=== PATIENT | female | born 2000 | race Caucasian/White ===

== ENCOUNTER 2023-08-03 13:20 | Emergency (ER) | payer OTHER ==
--- NOTE | 2023-08-03 13:25 | ED ---
General Adult HPI - General Source: RN notes reviewed <Karla Stuart - Last Filed: 08/03/23 13:24> <Jerel Rosas - Last Filed: 08/03/23 18:25> - General Stated complaint: Fall Time Seen by Provider: 08/03/23 13:24 - History of Present Illness Initial comments: 22-year-old female presents to the emergency department the chief complaint of syncope. Patient reports that she is approximately 34 weeks . (Karla Stuart) This is a 22-year-old female who is 32 weeks . 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 Patient states that she thinks she passed out for just 1 second. Patient states she has a little bit of headache at this time. Patient also states she feels very fatigued patient no longer feels lightheaded. Patient denies any other injury. (Jerel Rosas) - Related Data Previous Rx's Medication Instructions Recorded Nitrofurantoin Monohyd/M-Cryst 100 mg PO Q12HR #14 cap 08/03/23 [Macrobid] Allergies Allergy/AdvReac Type Severity Reaction Status Date / Time No Known Allergies Allergy Verified 08/03/23 14:02 Review of Systems ROS Other: All systems not noted in ROS Statement are negative. <Karla Stuart - Last Filed: 08/03/23 13:24> ROS Other: All systems not noted in ROS Statement are negative. <Jerel Rosas - Last Filed: 08/03/23 18:25> ROS Statement: Those systems with pertinent positive or pertinent negative responses have been documented in the HPI. Past Medical History Past Medical History: No Reported History History of Any Multi-Drug Resistant Organisms: None Reported Past Surgical History: No Surgical Hx Reported Past Psychological History: No Psychological Hx Reported Past Alcohol Use History: None Reported Past Drug Use History: None Reported <Karla Stuart - Last Filed: 08/03/23 13:24> General Exam <Karla Stuart - Last Filed: 08/03/23 13:24> <Jerel Rosas - Last Filed: 08/03/23 18:25> - General Exam Comments Initial Comments: Visual Physical Exam Vital signs reviewed General: Well-appearing, nontoxic, no acute distress. Head: Normocephalic, atraumatic Eyes: PERRLA, EOMI ENT: Airway patent Chest: Nonlabored breathing Skin: No visual rash, normal skin tone Neuro: Alert and oriented 3 Musculoskeletal: No gross abnormalities (Karla Stuart) GENERAL: Patient is well-developed and well-nourished. Patient is nontoxic and well- hydrated and is in no acute distress. ENT: Neck is soft and supple. No significant lymphadenopathy is noted. Oropharynx is clear. Moist mucous membranes. Neck has full range of motion without huy citing any pain. She has a small hematoma to the occipital region of the head EYES: The sclera were anicteric and conjunctiva were pink and moist. Extraocular movements were intact and pupils were equal round and reactive to light. Eyelids were unremarkable. PULMONARY: Unlabored respirations. Good breath sounds bilaterally. No audible rales rhonchi or wheezing was noted. CARDIOVASCULAR: There is a regular rate and rhythm without any murmurs gallops or rubs. ABDOMEN: Soft and nontender with normal bowel sounds. SKIN: Skin is clear with no lesions or rashes and otherwise unremarkable. NEUROLOGIC: Patient is alert and oriented x3. Cranial nerves II through XII are grossly intact. Motor and sensory are also intact. Normal speech, volume and content. Symmetrical smile. MUSCULOSKELETAL: Normal extremities with adequate strength and full range of motion. LYMPHATICS: No significant lymphadenopathy is noted PSYCHIATRIC: Normal psychiatric evaluation. (Jerel Rosas) Course Vital Signs 08/03/23 08/03/23 13:58 18:15 Temperature 98.3 F 98.0 F Pulse Rate 112 H 90 Respiratory 18 Rate Blood Pressure 119/86 114/73 O2 Sat by Pulse 98 97 Oximetry Medical Decision Making <Karla Stuart - Last Filed: 08/03/23 13:24> - Lab Data Result diagrams: 08/03/23 14:16 08/03/23 14:16 <Jerel Rosas - Last Filed: 08/03/23 18:25> - Medical Decision Making I performed the quick note portion of this exam, verbal signature Karla Stuart PA-C (Karla Stuart) EKG is interpreted by myself. EKG shows a sinus rhythm at 91 bpm AK interval is 140 QRS 78 QT interval 332 QTC is 381. Patient's EKG shows no ST segment elevation or depression. I offered a computed tomography scan of the patient's head and she did not want one. Patient was much more concerned about having the baby checked out. Patient denies having landed on the baby or her belly. Patient denies any significant abdominal pain. Patient states she has a couple sharp pains on the side which she was. She prior to the falls well. And has had that for a few weeks. Patient denies any vaginal bleeding. Patient denies any back pain. Patient points to the left lateral side of the abdomen and states this is where the sharp pain that she has had occurs. She states only last 1-2 seconds.. Was pt. sent in by a medical professional or institution (, [facility], SALES BRANCH MANAGER, urgent care, hospital, or shelter...) When possible be specific @ -[No] Did you speak to anyone other than the patient for history (EMS, parent, family, police, friend...)? What history was obtained from this source @ -[No] Did you review nursing and triage notes (agree or disagree)? Why? @ -[I reviewed and agree with nursing and triage notes] Were old charts reviewed (outside hosp., previous admission, EMS record, old EKG, old radiological studies, urgent care reports/EKG's, shelter records)? Report findings @ -[No old charts were reviewed] Differential Diagnosis (chest pain, altered mental status, abdominal pain women, abdominal pain men, vaginal bleeding, weakness, fever, dyspnea, syncope, headache, dizziness, GI bleed, back pain, seizure, CVA, palpatations, mental health, musculoskeletal)? @ -Differential Syncope: Valvular disease, hypertrophic cardiomyopathy, pulmonary embolism, tamponade, tachycardia, bradycardia, ND, hypovolemia, hemorrhage, dissection, anemia, intracranial hemorrhage, seizure, hypoglycemia, carbon monoxide poisoning, this is not meant to be an all-inclusive list. EKG interpreted by me (3pts min.). @ -[As above] X-rays interpreted by me (1pt min.). @ -[None done] CT interpreted by me (1pt min.). @ -[None done] U/S interpreted by me (1pt. min.). @ -[None done] What testing was considered but not performed or refused? (CT, X-rays, U/S, labs)? Why? @ -I considered ordering a computed tomography scan of the patient's pain but the patient refused and she just wanted to have her baby checked out. What meds were considered but not given or refused? Why? @ -[None] Did you discuss the management of the patient with other professionals (professionals i.e. , PA, SALES BRANCH MANAGER, lab, RT, psych nurse, foster care social worker, research subject, teacher, fire officer, case management specialist)? Give summary @ -[No] Was smoking cessation discussed for >3mins.? @ -[No] Was critical care preformed (if so, how long)? @ -[No] Were there social determinants of health that impacted care today? How? (Homelessness, low income, unemployed, alcoholism, drug addiction, transportation, low edu. Level, literacy, decrease access to med. care, retirement, rehab)? @ -[No] Was there de-escalation of care discussed even if they declined (Discuss DNR or withdrawal of care, Hospice)? DNR status @ -[No] What co-morbidities impacted this encounter? (DM, HTN, Smoking, COPD, CAD, Cancer, CVA, ARF, Chemo, Hep., AIDS, mental health diagnosis, sleep apnea, morbid obesity)? @ -[None] Was patient admitted / discharged? Hospital course, mention meds given and route, prescriptions, significant lab abnormalities, going to OR and other pertinent info. @ -Patient had no significant abdominal pain on palpation. Patient did have a small hematoma to the occipital region of her scalp. Patient did not want a CAT scan. Patient wanted to go upstairs and be checked out by AUTOMOBILE TIRE BUILDER. Patient did have some bacteria in her urine so I will be treating she states she's had this multiple times before but for various reasons she did not have it treated before. Undiagnosed new problem with uncertain prognosis? @ -[No] Drug Therapy requiring intensive monitoring for toxicity (Heparin, Nitro, Insulin, Cardizem)? @ -[No] Were any procedures done? @ -[No] Diagnosis/symptom? @ -Syncope Acute, or Chronic, or Acute on Chronic? @ -Acute Uncomplicated (without systemic symptoms) or Complicated (systemic symptoms)? @ -Complicated Side effects of treatment? @ -[No] Exacerbation, Progression, or Severe Exacerbation? @ -[No] Poses a threat to life or bodily function? How? (Chest pain, USA, ND, pneumonia, PE, COPD, DKA, ARF, appy, cholecystitis, CVA, Diverticulitis, Homicidal, Suic idal, threat to staff... and all critical care pts) @ -[No] Diagnosis/symptom? @ -Urinary tract infection Acute, or Chronic, or Acute on Chronic? @ -Acute Uncomplicated (without systemic symptoms) or Complicated (systemic symptoms)? @ -Complicated Side effects of treatment? @ -[none] Exacerbation, Progression, or Severe Exacerbation] @ -[no] Poses a threat to life or bodily function? @ -[no] (Jerel Rosas) - Lab Data Lab Results 08/03/23 08/03/23 08/03/23 Range/Units 14:04 14:16 14:16 WBC 8.3 (3.8-10.6) k/uL RBC 4.23 (3.80-5.40) m/uL Hgb 12.4 (11.4-16.0) gm/dL Hct 36.1 (34.0-46.0) % MCV 85.2 (80.0-100.0) fL MCH 29.3 (25.0-35.0) pg MCHC 34.4 (31.0-37.0) g/dL RDW 12.3 (11.5-15.5) % Plt Count 124 L (150-450) k/uL MPV 9.8 Neutrophils % 82 % Lymphocytes % 12 % Monocytes % 4 % Eosinophils % 0 % Basophils % 0 % Neutrophils # 6.8 (1.3-7.7) k/uL Lymphocytes # 1.0 (1.0-4.8) k/uL Monocytes # 0.4 (0-1.0) k/uL Eosinophils # 0.0 (0-0.7) k/uL Basophils # 0.0 (0-0.2) k/uL PT 9.8 L (10.0-12.5) sec INR 0.9 (<1.2) APTT 23.1 (22.0-30.0) sec Sodium (137-145) mmol/L Potassium (3.5-5.1) mmol/L Chloride (98-107) mmol/L Carbon Dioxide (22-30) mmol/L Anion Gap mmol/L BUN (7-17) mg/dL Creatinine (0.52-1.04) mg/dL Est GFR (CKD-EPI)AfAm (>60 ml/min/1.73 sqM) Est GFR (CKD-EPI)NonAf (>60 ml/min/1.73 sqM) Glucose (74-99) mg/dL POC Glucose (mg/dL) 113 H (70-110) mg/dL POC Glu News Assignment Editor ID Jamia Araiza Calcium (8.4-10.2) mg/dL Total Bilirubin (0.2-1.3) mg/dL AST (14-36) U/L ALT (4-34) U/L Alkaline Phosphatase (38-126) U/L Total Protein (6.3-8.2) g/dL Albumin (3.5-5.0) g/dL Urine Color Urine Appearance (Clear) Urine pH (5.0-8.0) Ur Specific [place] (1.001-1.035) Urine Protein (Negative) Urine Glucose (UA) (Negative) Urine Ketones (Negative) Urine Blood (Negative) Urine Nitrite (Negative) Urine Bilirubin (Negative) Urine Urobilinogen (<2.0) mg/dL Ur Leukocyte Esterase (Negative) Urine RBC (0-5) /hpf Urine WBC (0-5) /hpf Ur Squamous Epith Cells (0-4) /hpf Urine Bacteria (None) /hpf Urine Mucus (None) /hpf Influenza Type A (PCR) (Not Detectd) Influenza Type B (PCR) (Not Detectd) RSV (PCR) (Not Detectd) SARS-CoV-2 (PCR) (Not Detectd) 08/03/23 08/03/23 08/03/23 Range/Units 14:16 14:16 14:24 WBC (3.8-10.6) k/uL RBC (3.80-5.40) m/uL Hgb (11.4-16.0) gm/dL Hct (34.0-46.0) % MCV (80.0-100.0) fL MCH (25.0-35.0) pg MCHC (31.0-37.0) g/dL RDW (11.5-15.5) % Plt Count (150-450) k/uL MPV Neutrophils % % Lymphocytes % % Monocytes % % Eosinophils % % Basophils % % Neutrophils # (1.3-7.7) k/uL Lymphocytes # (1.0-4.8) k/uL Monocytes # (0-1.0) k/uL Eosinophils # (0-0.7) k/uL Basophils # (0-0.2) k/uL PT (10.0-12.5) sec INR (<1.2) APTT (22.0-30.0) sec Sodium 134 L (137-145) mmol/L Potassium 4.0 (3.5-5.1) mmol/L Chloride 104 (98-107) mmol/L Carbon Dioxide 20 L (22-30) mmol/L Anion Gap 10 mmol/L BUN 10 (7-17) mg/dL Creatinine 0.58 (0.52-1.04) mg/dL Est GFR (CKD-EPI)AfAm >90 (>60 ml/min/1.73 sqM) Est GFR (CKD-EPI)NonAf >90 (>60 ml/min/1.73 sqM) Glucose 98 (74-99) mg/dL POC Glucose (mg/dL) (70-110) mg/dL POC Glu News Assignment Editor ID Calcium 9.0 (8.4-10.2) mg/dL Total Bilirubin 0.3 (0.2-1.3) mg/dL AST 27 (14-36) U/L ALT 18 (4-34) U/L Alkaline Phosphatase 125 (38-126) U/L Total Protein 6.9 (6.3-8.2) g/dL Albumin 3.9 (3.5-5.0) g/dL Urine Color Light Yellow Urine Appearance Cloudy H (Clear) Urine pH 6.0 (5.0-8.0) Ur Specific [place] 1.022 (1.001-1.035) Urine Protein Trace H (Negative) Urine Glucose (UA) Negative (Negative) Urine Ketones Negative (Negative) Urine Blood Negative (Negative) Urine Nitrite Negative (Negative) Urine Bilirubin Negative (Negative) Urine Urobilinogen <2.0 (<2.0) mg/dL Ur Leukocyte Esterase Large H (Negative) Urine RBC 1 (0-5) /hpf Urine WBC 5 (0-5) /hpf Ur Squamous Epith Cells 4 (0-4) /hpf Urine Bacteria Occasional H (None) /hpf Urine Mucus Many H (None) /hpf Influenza Type A (PCR) Not Detected (Not Detectd) Influenza Type B (PCR) Not Detected (Not Detectd) RSV (PCR) Not Detected (Not Detectd) SARS-CoV-2 (PCR) Not Detected (Not Detectd) Disposition <Karla Stuart - Last Filed: 08/03/23 13:24> Is patient prescribed a controlled substance at d/c from ED?: No Time of Disposition: 18:22 <Jerel Rosas - Last Filed: 08/03/23 18:25> Clinical Impression: Syncope, Traumatic hematoma of head, Urinary tract infection Disposition: HOME SELF-CARE Instructions (If sedation given, give patient instructions): Urinary Tract Infection in (ED) Additional Instructions: Patient should go immediately to the obstetrics floor and have the baby evaluated Prescriptions: Nitrofurantoin Monohyd/M-Cryst [Macrobid] 100 mg PO Q12HR #14 cap Referrals: Sherrell Mendez DO [Primary Care Provider] - 1-2 days
[2023-08-03 14:06] LABS: Glucose,Whole Blood 113 mg/dL (70-110)
[2023-08-03 14:52] LABS: Basophils % (A) 0 %; Eosinophils % (A) 0 %; HCT 36.1 % (34.0-46.0); HGB 12.4 gm/dL (11.4-16.0); Lymphocytes % (A) 12 %; MCH 29.3 pg (25.0-35.0); MCHC 34.4 g/dL (31.0-37.0); MCV 85.2 fL (80.0-100.0); Mean Platelet Volume 9.8; Monocytes # (A) 0.4 k/uL (0-1.0); Monocytes % (A) 4 %; Neutrophils # (A) 6.8 k/uL (1.3-7.7); Neutrophils % (A) 82 %; Platelet Count 124 k/uL (150-450); RBC 4.23 m/uL (3.80-5.40); RDW 12.3 % (11.5-15.5); WBC 8.3 k/uL (3.8-10.6)
[2023-08-03 15:13] LABS: ALT 18 U/L (4-34); AST 27 U/L (14-36); African American GFR (CKD) >90 (>60 ml/min/1.73 sqM); Albumin 3.9 g/dL (3.5-5.0); Alkaline Phosphatase 125 U/L (38-126); Anion Gap 10 mmol/L; Blood Urea Nitrogen 10 mg/dL (7-17); Carbon Dioxide 20 mmol/L (22-30); Chloride 104 mmol/L (98-107); Glucose 98 mg/dL (74-99); Non-African American GFR(CKD) >90 (>60 ml/min/1.73 sqM); Sodium 134 mmol/L (137-145); Total Bilirubin 0.3 mg/dL (0.2-1.3); Total Protein 6.9 g/dL (6.3-8.2)
[2023-08-03 15:14] LABS: Appearance,Urine Cloudy (Clear); Bacteria,Urine Occasional /hpf; Bilirubin,Urine Negative (Negative); Blood,Urine Negative (Negative); Color,Urine Light Yellow; Glucose,Urine (UA) Negative (Negative); Ketones,Urine Negative (Negative); Leukocyte Esterase,Urine Large (Negative); Mucus,Urine Many /hpf; Nitrite,Urine Negative (Negative); Protein,Urine Trace (Negative); RBC,Urine 1 /hpf (0-5); Specific Gravity,Urine 1.022 (1.001-1.035); Squamous Epithelial Cell,Urine 4 /hpf (0-4); Urobilinogen,Urine <2.0 mg/dL (<2.0); WBC,Urine 5 /hpf (0-5)
[2023-08-03 15:15] LABS: INR 0.9 (<1.2); Partial Thromboplastin Time 23.1 sec (22.0-30.0); Prothrombin Time 9.8 sec (10.0-12.5)
[2023-08-03 18:33] VITALS: TEMP 98
[2023-08-03 18:54] VITALS: BP 108/75; PULSE 98; RESP 20
== END 2023-08-03 18:42 | disposition home or self-care (01) ==
LOC: EC 13:20
DX: O9A.213 Injury, poisoning and certain other consequences of external causes complicating pregnancy, third trimester (principal); S00.93XA Contusion of unspecified part of head, initial encounter; O23.43 Unspecified infection of urinary tract in pregnancy, third trimester; N39.0 Urinary tract infection, site not specified; Z20.822 Contact with and (suspected) exposure to COVID-19; Z3A.34 34 weeks gestation of pregnancy; W18.09XA Striking against other object with subsequent fall, initial encounter; Y99.0 Civilian activity done for income or pay
CPT/HCPCS: 36415; 80053; 81001; 85025; 85610; 85730; 87086; 87636; 93005; 99283

== ENCOUNTER 2023-08-03 18:49 | Outpatient (CLI) | payer OTHER ==
[2023-08-03 19:56] VITALS: BP 126/66; PULSE 97; RESP 18; TEMP 97.3
--- NOTE | 2023-08-20 13:52 | P.MSEPDOC ---
Presenting Problems - Arrival Data Date of Arrival on Unit: 08/03/23 Time of Arrival on Unit: 18:49 Mode of Transport: Wheelchair - Complaint OB-Reason for Admission/Chief Complaint: Syncope/Fainting Spell Comment: Pt DOM, seeing Dr. Bello regularly for care. 31 weeks 6 days. Presents to triage following an episode of syncope and a fall at 1250 today at work. PT was cleared in ER. C/o headache 01/09 at this time. Medical History - Information : 1 Para: 0 Term: 0 : 0 Abortions: Spontaneous or Elective: 0 Number of Living Children: 0 - Gestational Age Gestational Age by ANTONIETTA (wks/days): 31 Weeks and 6 Days Review of Systems - Review of Systems Constitutional: No problems Breast: No problems ENT: No problems Cardiovascular: No problems Respiratory: No problems Gastrointestinal: No problems Genitourinary: No problems Musculoskeletal: No problems Neurological: No problems Skin: No problems Vital Signs - Temperature Temperature: 97.3 F Temperature Source: Temporal Artery Scan - Pulse Pulse Oximetery Pulse Rate: 97 Pulse Assessment Method: Pulse Oximetry - Respirations Respiratory Rate: 18 Oxygen Delivery Method: Room Air O2 Sat by Pulse Oximetry: 98 - Blood Pressure Right Arm Blood Pressure: 126/66 Blood Pressure Mean: 86 Blood Pressure Source: Automatic Cuff Medical Screen Scoring - Assessment - Baby A Baseline FHR: 140 Heart Rate - NICHD Category: Category I (Normal) NST: Reactive Physician Notification - Physician Notified Physician Notified Date: 08/03/23 Physician Notified Time: 19:25 Physician: Thania Rowe Order Received: Yes - Notification Comment Comment: Spoke with Dr. Rowe. Pt DOM, seeing Dr. Bello regularly for care. 31 weeks 6 days. Presents to triage following an episode of syncope and a fall at 1250 today at work. PT was cleared in ER. C/o headache 01/09 at this time. Vitals stable. Reactive NST and no cx per toco or palpation. Order to discharge home and pt to follow up with regular OB tomorrow. Maternal Triage Index - Maternal Triage Index Presenting for scheduled procedure w/no complaint: No - Stat/Priority 1 Stat Priority 1: No - Urgent/Priority 2 Urgent Priority 2: No - Prompt/Priority 3 Prompt Priority 3: Yes Criteria Met for Priority 3: Spoke with Dr. Rowe. Pt DOM, seeing Dr. Bello regularly for care. 31 weeks 6 days. Presents to triage fo llowing an episode of syncope and a fall at 1250 today at work. PT was cleared in ER. C/o headache 01/09 at this time. Vitals stable. Reactive NST and no cx per toco or palpation. Order to discharge home and pt to follow up with regular OB tomorrow. Disposition - Disposition OB Disposition: Triage, Discharge to home Discharge Date: 08/03/23 Discharge Time: 19:35 I agree with the RN Medical Screening Exam: Yes Case reviewed; plan agreed upon as documented in EMR&OBIX.: Yes Diagnosis: Fall in pregnacy
== END 2023-08-03 20:00 | disposition home or self-care (01) ==
LOC: FBPOP 18:49
PROVIDERS: ATTEND Obstetrics & Gynecology
DX: O9A.213 Injury, poisoning and certain other consequences of external causes complicating pregnancy, third trimester (principal); Z3A.31 31 weeks gestation of pregnancy; W19.XXXA Unspecified fall, initial encounter
CPT/HCPCS: 59025; 99213